=== PATIENT | male | born 1930 | race Caucasian/White ===

== ENCOUNTER 2017-03-26 12:28 | Inpatient (IN) | payer OTHER ==
[~2017-03-26] VITALS: Ht 175.3 cm; Wt 71.7 kg
[~2017-03-26 12:28] MED LIST: AMLO10TA2 PO; LEVO125T6 PO; LISI-646 PO; PRAV20TA3 PO
[2017-03-26] MEDS ORDERED: SODIUM CHLORIDE 0.9% 1,000 ML IV ONE (12:55)
[2017-03-26] MEDS ORDERED: LOSA25TA9 PO (13:05)
[2017-03-26 13:32] LABS: Albumin 3.6 g/dL (3.4-5.0); Calcium 9.2 mg/dL (8.5-10.1); Potassium 3.9 mmol/L (3.5-5.1)
[2017-03-26 13:39] LABS: Bilirubin, Total 0.5 mg/dL (0.2-1.0); Total Protein 7.4 g/dL (6.4-8.2)
[2017-03-26 13:46] LABS: Basophils # (auto) 0.1 uL; Basophils % (auto) 1.2 % (0.0-2.0); CONDITION Y; Eosinophils # (auto) 0.2 uL; Eosinophils % (auto) 4.6 % (0.0-7.0); Hematocrit 37.9 % (41.0-53.0); Hemoglobin 12.8 g/dL (13.5-17.5); Lymphocytes # (auto) 0.8 uL; Lymphocytes % (auto) 15.3 % (10.0-50.0); Mean Corpuscular Hemoglobin 31.2 pg (28.0-32.0); Mean Corpuscular Hgb Conc. 33.8 g/dL (32.0-36.0); Mean Corpuscular Volume 92.2 fL (80.0-100.0); Mean Platelet Volume 9.5 fL (7.4-10.4); Monocytes # (auto) 0.3 uL; Monocytes % (auto) 6.5 % (0.0-12.0); Neutrophils # (auto) 3.7 uL; Neutrophils % (auto) 72.4 % (37.0-80.0); Platelet Count (auto) 276 10^3/uL (140-450); Red Cell Distribution Width 14.2 % (11.6-16.0); White Blood Cell 5.1 10^3/uL (4.4-10.8)
[2017-03-26 13:57] LABS: INR 1.08 (0.9-1.15); Prothrombin Time 11.8 sec (9.37-12.3)
[2017-03-26] MEDS ORDERED: AMIODARONE HCL 200 MG TAB PO ONE (15:00)
[2017-03-26] MEDS ORDERED: DOCUSATE SOD 100 MG CAP PO PRN (15:00)
[2017-03-26] MEDS ORDERED: ONDANSETRON HCL 4 MG/2 ML VIAL IV PRN (15:00)
[2017-03-26] MEDS ORDERED: HYDROcodone-ACET 5/325MG TAB PO PRN (15:00)
[2017-03-26] MEDS ORDERED: MORPHINE SULF INJ 2 MG/ML SYRINGE 1ML IV PRN ×2 (15:00)
[2017-03-26] MEDS ORDERED: NITROGLYCERIN 0.4 MG SL TAB SL PRN (15:00)
[2017-03-26] MEDS ORDERED: TEMAZEPAM 15 MG CAP PO PRN (15:00)
[2017-03-26] MEDS ORDERED: ACETAMINOPHEN 325 MG TAB PO PRN (15:00)
[2017-03-26] MEDS ORDERED: cloNIDine HCL 0.1 MG TAB PO PRN (15:00)
[2017-03-26] MEDS: ZINC SULFATE 220 MG CAP PO SCH (15:03)
[2017-03-26] MEDS ORDERED: LOSARTAN POTASSIUM 25 MG TAB PO ONE (15:15)
[2017-03-26] MEDS ORDERED: amLODIPine BESYLATE 5 MG TAB PO ONE (15:15)
[2017-03-26] MEDS ORDERED: FAMOTIDINE 20 MG TAB PO ONE (15:15)
[2017-03-26] MEDS ORDERED: ASPirin-EC 81 mg tab PO ONE (15:15)
[2017-03-26] MEDS: ENOXAPARIN SOD 40 MG/0.4 ML SYRINGE SC SCH (15:33)
[2017-03-26 16:28] VITALS: BP 122/58
[2017-03-26 16:29] VITALS: BP 122/58
[2017-03-26 20:00] VITALS: BP 110/55
[2017-03-26 22:00] VITALS: BP 110/55
[2017-03-26] MEDS ORDERED: PRAVASTATIN SODIUM 20 MG TAB PO SCH (22:00)
[2017-03-26] MEDS: AMIODARONE HCL 200 MG TAB PO SCH (22:52)
[2017-03-26] MEDS: SODIUM CHLOR 0.9% PF (SALINE LOCK) 10ML VIAL IV SCH (22:52)
[2017-03-26] MEDS: ASCORBIC ACID 500 MG TAB PO SCH (22:53)
[2017-03-27 05:00] VITALS: BP 119/66
[2017-03-27] MEDS: SODIUM CHLOR 0.9% PF (SALINE LOCK) 10ML VIAL IV SCH (06:39)
[2017-03-27 06:40] LABS: Basophils # (auto) 0 uL; Basophils % (auto) 1.1 % (0.0-2.0); CONDITION Y; Eosinophils # (auto) 0.3 uL; Eosinophils % (auto) 8.3 % (0.0-7.0); Hematocrit 32.2 % (41.0-53.0); Hemoglobin 11.1 g/dL (13.5-17.5); Lymphocytes # (auto) 0.7 uL; Lymphocytes % (auto) 20.7 % (10.0-50.0); Mean Corpuscular Hemoglobin 31.9 pg (28.0-32.0); Mean Corpuscular Hgb Conc. 34.4 g/dL (32.0-36.0); Mean Corpuscular Volume 92.9 fL (80.0-100.0); Mean Platelet Volume 8.9 fL (7.4-10.4); Monocytes # (auto) 0.3 uL; Monocytes % (auto) 10.4 % (0.0-12.0); Neutrophils # (auto) 1.9 uL; Neutrophils % (auto) 59.5 % (37.0-80.0); Platelet Count (auto) 203 10^3/uL (140-450); Red Cell Distribution Width 14.2 % (11.6-16.0); White Blood Cell 3.2 10^3/uL (4.4-10.8)
[2017-03-27 06:56] LABS: BUN/Creatinine Ratio 12.3; Bilirubin, Total 0.4 mg/dL (0.2-1.0); Calcium 8.6 mg/dL (8.5-10.1); Potassium 3.9 mmol/L (3.5-5.1); Total Protein 6.4 g/dL (6.4-8.2)
[2017-03-27] MEDS ORDERED: LEVOTHYROXINE SODIUM 100 MCG TAB PO SCH (07:00)
[2017-03-27 08:30] VITALS: BP 144/65
[2017-03-27 09:05] LABS: Urine RBC None Seen /hpf (0 - 3)
[2017-03-27 09:17] LABS: Urine Bilirubin Negative (Negative); Urine Blood Negative /uL (Negative); Urine Color Yellow (Yellow); Urine Glucose Normal (Normal); Urine Hyaline Cast FEW /lpf (0 - 2); Urine Ketone Negative (Negative); Urine Mucus FEW (None Seen); Urine Nitrite Negative (Negative); Urine Urobilinogen Normal (Negative); Urine pH 5.5 (5.0-8.0)
[2017-03-27] MEDS: AMIODARONE HCL 200 MG TAB PO SCH (09:46)
[2017-03-27] MEDS: ZINC SULFATE 220 MG CAP PO SCH (09:46)
[2017-03-27] MEDS: ASCORBIC ACID 500 MG TAB PO SCH (09:47)
[2017-03-27] MEDS: ENOXAPARIN SOD 40 MG/0.4 ML SYRINGE SC SCH (09:48)
[2017-03-27] MEDS ORDERED: amLODIPine BESYLATE 5 MG TAB PO SCH (10:00)
[2017-03-27] MEDS ORDERED: FAMOTIDINE 20 MG TAB PO SCH (10:00)
[2017-03-27] MEDS ORDERED: ASPirin-EC 81 mg tab PO SCH (10:00)
[2017-03-27] MEDS ORDERED: LOSARTAN POTASSIUM 25 MG TAB PO SCH (10:00)
[2017-03-27] MEDS ORDERED: MULTIPLE VITAMIN TAB PO SCH (10:00)
[2017-03-27] MEDS ORDERED: CLOPIDOGREL BISULFATE 75 MG TAB PO ONE (10:15)
== END 2017-03-27 12:54 | disposition home or self-care (01) | DRG 309 ==
LOC: ER 12:28 → TELE 12:29 → TELE-EAST 16:26
PROVIDERS: ADMIT Internal Medicine; ATTEND Internal Medicine
DX: I48.0 Paroxysmal atrial fibrillation (principal); N17.9 Acute kidney failure, unspecified; I12.9 Hypertensive chronic kidney disease with stage 1 through stage 4 chronic kidney disease, or unspecified chronic kidney disease; N18.3 Chronic kidney disease, stage 3 (moderate); E03.9 Hypothyroidism, unspecified; E78.5 Hyperlipidemia, unspecified; D63.8 Anemia in other chronic diseases classified elsewhere; I25.10 Atherosclerotic heart disease of native coronary artery without angina pectoris; M54.30 Sciatica, unspecified side; Z82.0 Family history of epilepsy and other diseases of the nervous system; Z95.1 Presence of aortocoronary bypass graft; Z95.2 Presence of prosthetic heart valve; Z88.2 Allergy status to sulfonamides; Z91.14 Patient's other noncompliance with medication regimen; Z88.8 Allergy status to other drugs, medicaments and biological substances
CPT/HCPCS: 36415; 70450; 71010; 80053; 81001; 84484; 85025; 85610; 85730; 87081; 93005; 96360

== ENCOUNTER 2018-02-16 15:33 | Emergency (ER) | payer OTHER ==
[~2018-02-16] VITALS: Ht 175.3 cm; Wt 72.6 kg
[~2018-02-16 15:33] MED LIST changes: -LEVO125T6 PO; +LEVO125T7 PO; -LISI-646 PO; +LOSA25TA9 PO
[2018-02-16] MEDS ORDERED: LIDOCAINE 2% (LOCAL ANESTH.) PF 5ml SDV ONE ×2 (16:28→16:29)
[2018-02-16] MEDS ORDERED: LIDOCAINE 2%HCL (LOCAL ANESTH.) INJ 10ml MDV IJ ONE (16:45)
[2018-02-16 17:38] VITALS: BP 151/79
[2018-02-16] MEDS ORDERED: NEOMYCIN-BACITRACIN-POLYM 15GM TOP OINT TOP ONE (18:43)
[2018-02-16] MEDS ORDERED: LIDOCAINE W/ EPINEPHRINE 1% 20ML VIAL ONE (19:10)
[2018-02-16] MEDS ORDERED: cefTRIAXone SOD 1,000 MG VL ONE (19:44)
[2018-02-16] MEDS ORDERED: cefTRIAXone W LIDOCAINE 1 GM IM IM ONE (19:45)
[2018-02-16] MEDS ORDERED: TETANUS-DIPTH-ACEL PERTUSSIS 0.5ML SYRG IM ONE (19:45)
[2018-02-16] MEDS ORDERED: BACITRACIN-POLYMYXIN B TOPICAL OINT UD TOP ONE (19:54)
== END 2018-02-16 20:13 | disposition home or self-care (01) ==
LOC: ER 15:37
DX: S01.511A Laceration without foreign body of lip, initial encounter (principal); S00.83XA Contusion of other part of head, initial encounter; I25.10 Atherosclerotic heart disease of native coronary artery without angina pectoris; M62.838 Other muscle spasm; I10 Essential (primary) hypertension; E07.89 Other specified disorders of thyroid; I48.91 Unspecified atrial fibrillation; Z88.2 Allergy status to sulfonamides; Z95.1 Presence of aortocoronary bypass graft; V43.52XA Car driver injured in collision with other type car in traffic accident, initial encounter; Y93.89 Activity, other specified; Y99.8 Other external cause status; Y92.410 Unspecified street and highway as the place of occurrence of the external cause
CPT/HCPCS: 12052; 70450; 72125; 90471; 90715; 96372; 99284; J0696; J2001

== ENCOUNTER 2018-03-01 16:33 | Emergency (ER) | payer OTHER ==
[~2018-03-01] VITALS: Ht 175.3 cm; Wt 68.0 kg
[2018-03-01 16:55] VITALS: BP 188/82
[2018-03-01 17:37] LABS: Basophils # (auto) 0 uL; Basophils % (auto) 0.7 % (0.0-2.0); Eosinophils # (auto) 0.2 uL; Eosinophils % (auto) 4.5 % (0.0-7.0); Hematocrit 45.3 % (41.0-53.0); Lymphocytes # (auto) 0.7 uL; Mean Corpuscular Hgb Conc. 33.1 g/dL (32.0-36.0); Mean Corpuscular Volume 93.8 fL (80.0-100.0); Monocytes # (auto) 0.3 uL; Monocytes % (auto) 6.2 % (0.0-12.0); Neutrophils # (auto) 3.5 uL; Neutrophils % (auto) 73.6 % (37.0-80.0); Platelet Count (auto) 172 10^3/uL (140-450); Red Blood Cells 4.83 10^6/uL (4.5-5.90); Red Cell Distribution Width 14.4 % (11.8-14.3); White Blood Cell 4.7 10^3/uL (4.4-10.8)
[2018-03-01 17:55] LABS: Magnesium 2.4 mg/dL (1.6-2.6)
[2018-03-01 18:01] LABS: Albumin 3.9 g/dL (3.4-5.0); BUN/Creatinine Ratio 9.7; Bilirubin, Total 0.5 mg/dL (0.2-1.0); Calcium 8.9 mg/dL (8.5-10.1); Potassium 4.7 mmol/L (3.5-5.1); Total Protein 6.9 g/dL (6.4-8.2)
== END 2018-03-01 19:36 | disposition left against medical advice (07) ==
LOC: ER 16:39
DX: R51 Headache (principal); Z53.21 Procedure and treatment not carried out due to patient leaving prior to being seen by health care provider
CPT/HCPCS: 36415; 70450; 71046; 80053; 83735; 84484; 85025; 93005

== ENCOUNTER 2018-03-29 09:45 | Inpatient (IN) | payer OTHER ==
[~2018-03-29] VITALS: Ht 175.3 cm; Wt 74.3 kg
[2018-03-29] VITALS (30 sets, daily range): BP systolic 133–210; BP diastolic 50–122
[2018-03-29 10:35] LABS: Basophils # (auto) 0.1 uL; Basophils % (auto) 1.5 % (0.0-2.0); Eosinophils # (auto) 0.2 uL; Hematocrit 41.6 % (41.0-53.0); Hemoglobin 13.8 g/dL (13.5-17.5); Lymphocytes # (auto) 0.6 uL; Lymphocytes % (auto) 13.4 % (10.0-50.0); Mean Corpuscular Hgb Conc. 33.1 g/dL (32.0-36.0); Mean Corpuscular Volume 93.5 fL (80.0-100.0); Monocytes # (auto) 0.4 uL; Monocytes % (auto) 8.2 % (0.0-12.0); Neutrophils # (auto) 3.2 uL; Neutrophils % (auto) 71.9 % (37.0-80.0); Nucleated Red Blood Cells % 0.1 %; Platelet Count (auto) 124 10^3/uL (140-450); Red Blood Cells 4.45 10^6/uL (4.5-5.90); Red Cell Distribution Width 14.8 % (11.8-14.3); White Blood Cell 4.5 10^3/uL (4.4-10.8)
[2018-03-29 10:53] LABS: Alanine Aminotransferase 29 U/L (16-61); Albumin 3.4 g/dL (3.4-5.0); Anion Gap 5 (5-15); Aspartate Aminotransferase 15 U/L (15-37); BUN/Creatinine Ratio 13.6; Blood Urea Nitrogen 20 mg/dL (7-18); Calcium 8.6 mg/dL (8.5-10.1); Carbon Dioxide 27 mmol/L (21-32); Chloride 110 mmol/L (98-107); GFR African American 58 mL/min; GFR Non-African American 48 mL/min; Glucose 99 mg/dL (74-106); Potassium 4.1 mmol/L (3.5-5.1); Sodium 142 mmol/L (136-145)
[2018-03-29 11:03] LABS: Alkaline Phosphatase 88 U/L (45-117); Bilirubin, Total 0.5 mg/dL (0.2-1.0); Total Protein 6.3 g/dL (6.4-8.2)
[2018-03-29] MEDS ORDERED: LACTULOSE 20Gm/30ML SOLN PO PRN (13:30)
[2018-03-29] MEDS ORDERED: TEMAZEPAM 15 MG CAP PO PRN (13:30)
[2018-03-29] MEDS ORDERED: MORPHINE SULF INJ 2 MG/ML SYRINGE 1ML IV PRN (13:30)
[2018-03-29] MEDS ORDERED: MORPHINE SULFATE 4 MG/ML SYR/VIAL IV PRN (13:30)
[2018-03-29] MEDS ORDERED: ACETAMINOPHEN 500 MG TAB PO PRN (13:30)
[2018-03-29] MEDS ORDERED: NITROGLYCERIN 0.4 MG SL TAB SL PRN (13:30)
[2018-03-29] MEDS ORDERED: LORazepam 0.5 MG TAB PO PRN (13:30)
[2018-03-29] MEDS ORDERED: PROMETHAZINE HCL 25 MG/ML 1ML IV PRN (13:30)
[2018-03-29] MEDS ORDERED: HYDROcodone-ACET 5/325MG TAB PO PRN (13:30)
[2018-03-29 13:55] LABS: Urine Bacteria MANY /hpf (None Seen); Urine Blood Negative /uL (Negative); Urine Specific Gravity 1.006 (1.001-1.035); Urine WBC 14 /hpf (0 - 3)
[2018-03-29] MEDS: SODIUM CHLORIDE 0.9% 1,000 ML IV SCH (13:56)
[2018-03-29] MEDS: PANTOPRAZOLE 40 MG TAB PO SCH (13:56)
[2018-03-29] MEDS ORDERED: NITROGLYCERIN 50MG/250ML 250 ML IV SCH (14:36)
[2018-03-29] MEDS ORDERED: LEVOTHYROXINE SODIUM 25 MCG TAB PO ONE (15:30)
[2018-03-29] MEDS ORDERED: LEVOTHYROXINE SODIUM 100 MCG TAB PO ONE (15:45)
[2018-03-29] MEDS ORDERED: GLUCAGON HYDROCHLORIDE (RDNA) 1 MG VIAL IV ONE (18:15)
[2018-03-29] MEDS: PRAVASTATIN SODIUM 20 MG TAB PO SCH (21:33)
[2018-03-30] VITALS (95 sets, daily range): BP systolic 111–192; BP diastolic 47–112
[2018-03-30 05:12] LABS: Alanine Aminotransferase 27 U/L (16-61); Albumin 3.3 g/dL (3.4-5.0); Alkaline Phosphatase 81 U/L (45-117); Anion Gap 5 (5-15); Aspartate Aminotransferase 15 U/L (15-37); BUN/Creatinine Ratio 14.7; Bilirubin, Total 0.6 mg/dL (0.2-1.0); Blood Urea Nitrogen 21 mg/dL (7-18); Calcium 8.5 mg/dL (8.5-10.1); Carbon Dioxide 26 mmol/L (21-32); Chloride 109 mmol/L (98-107); GFR African American 60 mL/min; GFR Non-African American 50 mL/min; Glucose 85 mg/dL (74-106); Potassium 4.2 mmol/L (3.5-5.1); Sodium 140 mmol/L (136-145); Total Protein 5.9 g/dL (6.4-8.2)
[2018-03-30] MEDS: SODIUM CHLORIDE 0.9% 1,000 ML IV SCH (06:00)
[2018-03-30] MEDS ORDERED: LEVOTHYROXINE SODIUM 50 MCG TAB PO SCH (07:00)
[2018-03-30] MEDS ORDERED: PATIENTS OWN MEDICATION (Amlodipine Besylate 1 TAB) PO SCH (10:00)
[2018-03-30] MEDS ORDERED: amLODIPine BESYLATE 5 MG TAB PO SCH (10:00)
[2018-03-30] MEDS ORDERED: LOSARTAN POTASSIUM 25 MG PO SCH (10:00)
[2018-03-30] MEDS ORDERED: LEVOTHYROXINE SODIUM PO SCH (10:00)
[2018-03-30] MEDS ORDERED: LOSARTAN POTASSIUM 25 MG TAB PO SCH (10:00)
[2018-03-30] MEDS: PANTOPRAZOLE 40 MG TAB PO SCH (10:03)
[2018-03-30] MEDS: ENOXAPARIN SOD 40 MG/0.4 ML SYRINGE SC SCH (10:03)
[2018-03-30] MEDS ORDERED: LOSA50TA6 PO (12:51)
[2018-03-30] MEDS ORDERED: DONE5TAB31 PO (12:51)
[2018-03-30] MEDS ORDERED: AMIO200T33 PO (12:53)
[2018-03-30] MEDS ORDERED: CLON0.1T PO (12:55)
[2018-03-30] MEDS ORDERED: TRAZ50TA2 PO (12:58)
[2018-03-30] MEDS: hydrALAZINE HCL 20 MG/ML VL IV PRN ×5 (13:04→22:54)
[2018-03-30] MEDS ORDERED: traZODone HCL 50 MG TAB PO PRN (15:15)
[2018-03-30] MEDS ORDERED: LACTATED RINGER'S 1,000 ML IV SCH (15:15)
[2018-03-30] MEDS: cefTRIAXone 1GM/10ml IVPUSH 10 ML IV SCH (17:03)
[2018-03-30] MEDS: NIFEdipine ER 30 MG TAB PO SCH (17:32)
[2018-03-30] MEDS: LOSARTAN POTASSIUM 50 MG TAB PO SCH (20:55)
[2018-03-30] MEDS: hydrALAZINE HCL 25 MG TAB PO SCH (20:56)
[2018-03-30] MEDS: DONEPEZIL HYDROCHLORIDE 5 MG TAB PO SCH (20:56)
[2018-03-30] MEDS: PRAVASTATIN SODIUM 20 MG TAB PO SCH (20:56)
[2018-03-31] VITALS (44 sets, daily range): BP systolic 110–163; BP diastolic 44–92
[2018-03-31] MEDS: hydrALAZINE HCL 20 MG/ML VL IV PRN (01:37)
[2018-03-31 03:58] LABS: BUN/Creatinine Ratio 13.6; Calcium 9.2 mg/dL (8.5-10.1)
[2018-03-31] MEDS: hydrALAZINE HCL 25 MG TAB PO SCH ×3 (06:00→21:44)
[2018-03-31] MEDS: LEVOTHYROXINE SODIUM 50 MCG TAB PO SCH (06:15)
[2018-03-31] MEDS: cefTRIAXone 1GM/10ml IVPUSH 10 ML IV SCH (10:21)
[2018-03-31] MEDS: PANTOPRAZOLE 40 MG TAB PO SCH (10:21)
[2018-03-31] MEDS: ENOXAPARIN SOD 40 MG/0.4 ML SYRINGE SC SCH (10:21)
[2018-03-31] MEDS: LOSARTAN POTASSIUM 50 MG TAB PO SCH ×2 (10:22→21:44)
[2018-03-31] MEDS: NIFEdipine ER 30 MG TAB PO SCH (17:47)
[2018-03-31] MEDS: PRAVASTATIN SODIUM 20 MG TAB PO SCH (21:42)
[2018-03-31] MEDS: DONEPEZIL HYDROCHLORIDE 5 MG TAB PO SCH (21:45)
[2018-04-01] VITALS (20 sets, daily range): BP systolic 115–180; BP diastolic 55–103
[2018-04-01 04:15] LABS: INR 1.01 (0.9-1.15); Prothrombin Time 10.8 sec (9.27-12.13)
[2018-04-01 04:17] LABS: Calcium 9.4 mg/dL (8.5-10.1); Potassium 3.6 mmol/L (3.5-5.1)
[2018-04-01 04:19] LABS: BUN/Creatinine Ratio 15.5
[2018-04-01] MEDS: LEVOTHYROXINE SODIUM 50 MCG TAB PO SCH (06:12)
[2018-04-01] MEDS: hydrALAZINE HCL 25 MG TAB PO SCH ×3 (06:12→22:18)
[2018-04-01] MEDS: PANTOPRAZOLE 40 MG TAB PO SCH (09:54)
[2018-04-01] MEDS: cefTRIAXone 1GM/10ml IVPUSH 10 ML IV SCH (09:54)
[2018-04-01] MEDS: LOSARTAN POTASSIUM 50 MG TAB PO SCH ×2 (09:55→22:18)
[2018-04-01] MEDS: hydrALAZINE HCL 20 MG/ML VL IV PRN (11:11)
[2018-04-01] MEDS ORDERED: LIDOCAINE 2%HCL (LOCAL ANESTH.) INJ 10ml MDV ONE (12:40)
[2018-04-01] MEDS ORDERED: fentaNYL CITRATE 100 MCG/2 ML VL ONE (12:45)
[2018-04-01] MEDS ORDERED: MIDAZOLAM HCL 1MG/1ML-2 ML VIAL ONE (12:45)
[2018-04-01] MEDS ORDERED: VANCOMYCIN HCL 1000 MG VL ONE (12:55)
[2018-04-01] MEDS ORDERED: VANCOMYCIN 1GM/250ML 250 ML IV ONE (12:55)
[2018-04-01] MEDS ORDERED: ceFAZolin 1GM/50ML 50 ML IV ONE (13:18)
[2018-04-01] MEDS: NIFEdipine ER 30 MG TAB PO SCH (18:26)
[2018-04-01] MEDS: DONEPEZIL HYDROCHLORIDE 5 MG TAB PO SCH (22:17)
[2018-04-01] MEDS: PRAVASTATIN SODIUM 20 MG TAB PO SCH (22:18)
[2018-04-02] MEDS ORDERED: VANCOMYCIN 1GM/250ML 250 ML IV SCH (01:00)
[2018-04-02] MEDS: hydrALAZINE HCL 20 MG/ML VL IV PRN (04:06)
[2018-04-02 05:00] VITALS: BP 155/99
[2018-04-02] MEDS: hydrALAZINE HCL 25 MG TAB PO SCH ×2 (06:21→14:00)
[2018-04-02] MEDS: LEVOTHYROXINE SODIUM 50 MCG TAB PO SCH (06:21)
[2018-04-02 07:16] LABS: BUN/Creatinine Ratio 16.9; Calcium 9.2 mg/dL (8.5-10.1); Potassium 3.9 mmol/L (3.5-5.1)
[2018-04-02 08:09] LABS: Basophils # (auto) 0 uL; Basophils % (auto) 0.6 % (0.0-2.0); Eosinophils # (auto) 0.1 uL; Eosinophils % (auto) 1.3 % (0.0-7.0); Hematocrit 46.4 % (41.0-53.0); Hemoglobin 15.5 g/dL (13.5-17.5); Lymphocytes # (auto) 0.6 uL; Lymphocytes % (auto) 7.6 % (10.0-50.0); Mean Corpuscular Hgb Conc. 33.3 g/dL (32.0-36.0); Mean Corpuscular Volume 92.9 fL (80.0-100.0); Monocytes # (auto) 0.7 uL; Monocytes % (auto) 9.6 % (0.0-12.0); Neutrophils # (auto) 6.3 uL; Neutrophils % (auto) 80.9 % (37.0-80.0); Nucleated Red Blood Cells % 0.3 %; Platelet Count (auto) 147 10^3/uL (140-450); Red Blood Cells 4.99 10^6/uL (4.5-5.90); Red Cell Distribution Width 14.9 % (11.8-14.3); White Blood Cell 7.8 10^3/uL (4.4-10.8)
[2018-04-02 09:00] VITALS: BP 161/83
[2018-04-02] MEDS: PANTOPRAZOLE 40 MG TAB PO SCH (11:09)
[2018-04-02] MEDS: LOSARTAN POTASSIUM 50 MG TAB PO SCH (11:11)
[2018-04-02] MEDS: cefTRIAXone 1GM/10ml IVPUSH 10 ML IV SCH (11:11)
[2018-04-02 13:00] VITALS: BP 164/86
== END 2018-04-02 16:15 | disposition home or self-care (01) | DRG 243 ==
LOC: ER 09:45 → TELE 09:46 → ICU WEST 16:30 → TELE-EAST 04-01 17:13
PROVIDERS: ADMIT Internal Medicine; ATTEND Hospitalist
PROC: 0JH606Z Insertion of Pacemaker, Dual Chamber into Chest Subcutaneous Tissue and Fascia, Open Approach (ICD-10-PCS; principal; 2018-03-29)
PROC: 02H63JZ Insertion of Pacemaker Lead into Right Atrium, Percutaneous Approach (ICD-10-PCS; 2018-03-29)
PROC: 02HK3JZ Insertion of Pacemaker Lead into Right Ventricle, Percutaneous Approach (ICD-10-PCS; 2018-03-29)
DX: I49.5 Sick sinus syndrome (principal); N39.0 Urinary tract infection, site not specified; I48.92 Unspecified atrial flutter; I48.0 Paroxysmal atrial fibrillation; E78.5 Hyperlipidemia, unspecified; E03.9 Hypothyroidism, unspecified; M19.90 Unspecified osteoarthritis, unspecified site; I25.10 Atherosclerotic heart disease of native coronary artery without angina pectoris; M48.02 Spinal stenosis, cervical region; I16.0 Hypertensive urgency; M75.101 Unspecified rotator cuff tear or rupture of right shoulder, not specified as traumatic; I11.0 Hypertensive heart disease with heart failure; I50.9 Heart failure, unspecified; M54.10 Radiculopathy, site unspecified; R55 Syncope and collapse; Z82.3 Family history of stroke; Z95.1 Presence of aortocoronary bypass graft; Z88.2 Allergy status to sulfonamides
CPT/HCPCS: 33208; 36415; 71045; 72040; 73030; 80048; 80053; 81001; 82550; 83880; 84443; 84484; 85025; 85610; 85652; 85730; 87081; 87086; 93005; 93306; 97163; 99152; C1785; J0690; J0696; J2001; J2250

== ENCOUNTER → 2020-01-20 | Emergency (ER) | payer OTHER ==
[~2020-01-20] VITALS: Ht 172.7 cm; Wt 68.0 kg
[~2020-01-20] MED LIST changes: +AMIO200T33 PO; -AMLO10TA2 PO; +CLON0.1T PO; +DONE5TAB31 PO; +LOSA-69 PO; -LOSA25TA9 PO; +TRAZ50TA2 PO
[2020-01-20 14:15] VITALS: BP 144/90
[2020-01-20 14:47] LABS: Basophils # (auto) 0.1 10 ^3/uL (0-0.2); Basophils % (auto) 1.2 % (0.0-2.0); Eosinophils # (auto) 0.1 10 ^3/uL (0-0.8); Eosinophils % (auto) 1.6 % (0.0-7.0); Hematocrit 42.2 % (41.0-53.0); Hemoglobin 13.8 g/dL (13.5-17.5); Lymphocytes # (auto) 0.7 10 ^3/uL (0.4-5.4); Lymphocytes % (auto) 12.4 % (10.0-50.0); Mean Corpuscular Hemoglobin 29.6 pg (28.0-32.0); Mean Corpuscular Hgb Conc. 32.7 g/dL (32.0-36.0); Mean Corpuscular Volume 90.5 fL (80.0-100.0); Monocytes # (auto) 0.3 10 ^3/uL (0-1.3); Monocytes % (auto) 4.9 % (0.0-12.0); Neutrophils # (auto) 4.8 10 ^3/uL (1.6-8.6); Neutrophils % (auto) 79.9 % (37.0-80.0); Platelet Count (auto) 164 10^3/uL (140-450); Red Blood Cells 4.66 10^6/uL (4.5-5.90); Red Cell Distribution Width 16.1 % (11.8-14.3)
[2020-01-20 15:05] LABS: Alanine Aminotransferase 24 U/L (16-61); Albumin 3.7 g/dL (3.4-5.0); Anion Gap 6 (5-15); Aspartate Aminotransferase 17 U/L (15-37); BUN/Creatinine Ratio 15.2; Blood Urea Nitrogen 28 mg/dL (7-18); Calcium 8.8 mg/dL (8.5-10.1); Carbon Dioxide 20 mmol/L (21-32); Chloride 116 mmol/L (98-107); GFR African American 45 mL/min; GFR Non-African American 37 mL/min; Glucose 114 mg/dL (74-106); Potassium 4.4 mmol/L (3.5-5.1); Sodium 142 mmol/L (136-145)
[2020-01-20 15:10] LABS: Alkaline Phosphatase 98 U/L (45-117); Bilirubin, Total 0.5 mg/dL (0.2-1.0); Total Protein 7.4 g/dL (6.4-8.2)
== END | disposition home or self-care (01) ==
LOC: ER 14:02 → EDUNIT# 14:02 → EDBD 14:02
DX: K52.9 Noninfective gastroenteritis and colitis, unspecified (principal); K59.00 Constipation, unspecified; I10 Essential (primary) hypertension; I25.10 Atherosclerotic heart disease of native coronary artery without angina pectoris; Z95.1 Presence of aortocoronary bypass graft; Z95.0 Presence of cardiac pacemaker; Z88.2 Allergy status to sulfonamides; Z79.899 Other long term (current) drug therapy
CPT/HCPCS: 36415; 80053; 84484; 85025

== ENCOUNTER → 2020-10-14 | Outpatient (CLI) | payer OTHER ==
[~2020-10-14] MED LIST changes: -DONE5TAB31 PO; +DONE5TAB80 PO
[2020-10-14 09:16] LABS: Basophils # (auto) 0.1 10 ^3/uL (0-0.2); Basophils % (auto) 1.1 % (0.0-2.0); Eosinophils # (auto) 0.1 10 ^3/uL (0-0.8); Eosinophils % (auto) 2.4 % (0.0-7.0); Hemoglobin 14.7 g/dL (13.5-17.5); Lymphocytes # (auto) 0.9 10 ^3/uL (0.4-5.4); Lymphocytes % (auto) 19.5 % (10.0-50.0); Mean Corpuscular Hemoglobin 31.5 pg (28.0-32.0); Mean Corpuscular Hgb Conc. 34.2 g/dL (32.0-36.0); Mean Corpuscular Volume 92.1 fL (80.0-100.0); Monocytes # (auto) 0.4 10 ^3/uL (0-1.3); Monocytes % (auto) 9.6 % (0.0-12.0); Neutrophils # (auto) 3.1 10 ^3/uL (1.6-8.6); Neutrophils % (auto) 67.4 % (37.0-80.0); Nucleated Red Blood Cells % 0.1 %; Platelet Count (auto) 183 10^3/uL (140-450); Red Blood Cells 4.67 10^6/uL (4.5-5.90); Red Cell Distribution Width 16.3 % (11.8-14.3); White Blood Cell 4.6 10^3/uL (4.4-10.8)
[2020-10-14 10:32] LABS: Potassium 4.4 mmol/L (3.5-5.1)
[2020-10-14 10:37] LABS: Albumin 3.7 g/dL (3.4-5.0); BUN/Creatinine Ratio 14.6; Bilirubin, Total 0.4 mg/dL (0.2-1.0); Calcium 9.2 mg/dL (8.5-10.1); Total Protein 7.8 g/dL (6.4-8.2)
== END | disposition home or self-care (01) ==
LOC: LAB 08:47
PROVIDERS: ATTEND Student in an Organized Health Care Education/Training Program
DX: I10 Essential (primary) hypertension (principal); R73.9 Hyperglycemia, unspecified
CPT/HCPCS: 36415; 80053; 83036; 84443; 85025

== ENCOUNTER 2020-12-27 07:49 | Emergency (ER) | payer OTHER, MEDICAID ==
[~2020-12-27] VITALS: Ht 175.3 cm; Wt 56.7 kg
[2020-12-27 07:49] VITALS: BP 161/79
[2020-12-27] MEDS ORDERED: cefTRIAXone SOD 1,000 MG VL IM ONE (08:15)
[2020-12-27] MEDS ORDERED: ACETAMINOPHEN 325 MG TAB PO ONE (08:15)
== END 2020-12-27 08:51 | disposition home or self-care (01) ==
LOC: ER 07:49
DX: L03.211 Cellulitis of face (principal); I25.10 Atherosclerotic heart disease of native coronary artery without angina pectoris; E78.5 Hyperlipidemia, unspecified; I10 Essential (primary) hypertension; Z95.1 Presence of aortocoronary bypass graft; Z95.0 Presence of cardiac pacemaker; Z88.2 Allergy status to sulfonamides; Z79.899 Other long term (current) drug therapy
CPT/HCPCS: 96372; 99283; J0696